=== PATIENT | female | born 1955 | race Caucasian/White ===

== ENCOUNTER 2019-01-19 23:41 | Emergency (ER) | payer OTHER ==
[2019-01-20 00:08] VITALS: BP 158/82; PULSE 82; TEMP 98.2; BMI 61.1
--- NOTE | 2019-01-20 01:03 | PDOC ---
History of Present Illness - General Chief Complaint: Chest Pain Stated Complaint: CHEST PAIN Time Seen by Provider: 01/20/19 00:40 History Source: Patient Exam Limitations: Language Barrier (rejected interpretor. 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 Per the patient, sensation is pressure like quality, relieves with burping, worsens with exertion , and no prior episode. Per the patient, she denies recent travels, hx of PE/DVT , and recent immobilization. She had a cardiac work up 1 year ago that was negative. Denies the following: diaphoresis, tearing chest pain, nausea, and vomiting. Endorses SOB. Received 324 mg aspirin in ambulance. Allergies: NKDA Meds: lisinopril 2.5 mg, metoprolol 25 mg, and aspirin 81 mg Past History - Past Medical History Allergies/Adverse Reactions: Allergies Allergy/AdvReac Type Severity Reaction Status Date / Time No Known Allergies Allergy Verified 01/20/19 00:08 Home Medications: Ambulatory Orders Aspirin 81 mg PO DAILY 01/20/19 Metoprolol/Hydrochlorothiazide [Metoprolol-Hctz 50-25 mg Tab] 25 mg PO DAILY Cancer: Yes COPD: No HTN: Yes Other medical history: stroke, right breast ca - Suicide/Smoking/Psychosocial Hx Smoking History: Never smoked Have you smoked in the past 12 months: No Information on smoking cessation initiated: No Hx Alcohol Use: No Drug/Substance Use Hx: No Review of Systems - Review of Systems Able to Perform ROS?: Yes Is the patient limited Amharic proficient: No Constitutional: No: Chills, Diaphoresis, Fever, Weakness HEENTM: No: Eye Pain, Ear Pain, Nose Pain, Throat Pain, Mouth Pain Respiratory: Yes: Cough, Shortness of Breath. No: Hemoptysis Cardiac (ROS): Yes: Chest Pain. No: Lightheadedness, Palpitations, Syncope ABD/GI: No: Constipated, Diarrhea, Nausea, Rectal Bleeding, Vomiting, Tarry Stools : No: Burning, Dysuria, Hematuria, Incontinence Musculoskeletal: Yes: Neck Pain. No: Back Pain, Joint Pain Integumentary: No: Bruising, Erythema, Rash Neurological: No: Headache, Numbness, Tingling, Tremors Psychiatric: No: Change in Appetite Endocrine: No: Unexplained Weight Gain *Physical Exam - Vital Signs Last Vital Signs Temp Pulse Resp BP Pulse Ox 98.2 F 82 20 158/82 98 01/20/19 00:05 01/20/19 00:05 01/20/19 00:05 01/20/19 00:05 01/20/19 00:05 - Physical Exam General Appearance: Yes: Nourished, Appropriately Dressed. No: Apparent Distress, Intoxicated HEENT: positive: EOMI, ESTER, Normal Voice, Symmetrical, Hearing Grossly Normal. negative: Pale Conjunctivae, Scleral Icterus (R), Scleral Icterus (L), Muffled /Hoarse voice, Excessive drooling Neck: positive: Trachea midline, Supple. negative: Tender, Lymphadenopathy (R) , Lymphadenopathy (L), Tender lateral, Tender midline Respiratory/Chest: positive: Lungs Clear, Normal Breath Sounds. negative: Chest Tender, Respiratory Distress, Accessory Muscle Use Cardiovascular: positive: Regular Rhythm, Regular Rate, S1, S2. negative: Systolic Murmur Gastrointestinal/Abdominal: positive: Normal Bowel Sounds, Flat, Soft. negative : Tender, Distended, Guarding, Rebound Lymphatic: negative: Adenopathy Musculoskeletal: positive: Normal Inspection. negative: CVA Tenderness, Vertebral Tenderness Extremity: positive: Normal Capillary Refill, Normal Inspection, Normal Range of Motion. negative: Tender Integumentary: positive: Normal Color, Dry, Warm Neurologic: positive: Fully Oriented, Alert, Normal Mood/Affect Heart Score/ECG Review - History History: Moderately suspicious - Electrocardiogram EKG: Normal - Age Age: 45-65 - Risk Factors Risk Factors Heart Score: Yes Hx Hypertension Based on the list above the patient has:: 1-2 risk factors - Troponin Troponin: </= normal limit - Score Heart Score - Total: 3 ED Treatment Course - LABORATORY CBC & Chemistry Diagram: 01/20/19 02:08 01/20/19 02:08 - RADIOLOGY Radiology Studies Ordered: Category Date Time Status CHEST PA & LAT [RAD] Stat Radiology 01/20/19 00:29 Ordered Medical Decision Making - Medical Decision Making 63 yo F with a hx of breast cancer (right cancer 2013 s/p radiation), CVA (2012 , residual left arm and left leg weakness), and HTN presents to the emergency department with chest pain radiating to the neck and left arm. Initial vitals: Initial Vital Signs Temp Pulse Resp BP Pulse Ox 98.2 F 82 20 158/82 98 01/20/19 00:05 01/20/19 00:05 01/20/19 00:05 01/20/19 00:05 01/20/19 00:05 Work up: ACS rule out. EKG: NSR without ST elevations or depressions. No TWI. Ventricular rate 71 bpm. Labs: cbc, cmp, trops, cxr. Patient was signed out to Dr. De Leon *DC/Admit/Observation/Transfer Diagnosis at time of Disposition: Chest pain - Referrals Referrals: ON STAFF,NOT [Primary Care Provider] - - Patient Instructions Printed Discharge Instructions: DI for Chest Pain Additional Instructions: If you worsening pain, shortness of breath, palpitations, excessive sweating, fever or other concerning symptoms please return to the ER. Please follow up with your primary care doctor in the next week. - Post Discharge Activity
--- NOTE | 2019-01-20 02:03 | PDOC ---
Documentation entered by Humera Fragoso SCRIBE, acting as scribe for Ray Cleveland MD. Ray Cleveland MD: This documentation has been prepared by the [place] johnston Xhesika, SCRIBE, under my direction and personally reviewed by me in its entirety. I confirm that the documentation accurately reflects all work, treatment, procedures, and medical decision making performed by me. Attending Attestation - Resident Resident Name: Mike Tolbert - ED Attending Attestation I have performed the following: I have examined & evaluated the patient, The case was reviewed & discussed with the resident, I agree w/resident's findings & plan, Exceptions are as noted - HPI HPI: 01/20/19 01:39 The patient is a 63 year old female with a PMH of breast cancer (right cancer 2013 s/p radiation), CVA (2012, residual left arm and left leg weakness), and HTN who presents to the ED BIBA for chest pain since 7pm. Patient notes CP feels like someone is punching her, is intermittent, radiates to her neck and L arm, and worsened with movement. Patient denies any recent travel, long car rides. Pt denies any history of PE or DVT. The patient denies shortness of breath, headache and dizziness. Denies fever, chills, cough, nausea, vomiting, diarrhea and constipation. Denies dysuria, frequency, urgency and hematuria. Allergies:, NKDA Social Hx: Denies current smoking, drinking, or other substance usage. - Physicial Exam PE: 01/20/19 01:40 Vitals: Triage Vital signs reviewed General Appearance: no acute distress, well nourished well developed, Neck: Supple;No Nuchal rigidity Chest Wall: Nontender Cardiac: Regular rate and rhythm, no murmurs, no rubs, no gallops, Lungs: Clear to auscultation bilateral, good air movement bilaterally, Abdomen: Soft, nondistended, normal bowel sounds, nontender to palpation Extremities:(+) mild L arm pain reproducible with movement. Moving all extremities, no cyanosis, clubbing, or edema Skin: Warm and dry, no rashes or lesions, no petechiae Neuro: AOX3; Cranial Nerves 2-12 grossly c intact, Strength intact to all extremities, Sensation intact to all extremities. Psych: normal mood, normal affect - Medical Decision Making 01/21/19 21:43 63 years old atypical chest discomfort more likely musculoskeletal radiculopathy EKG unremarkable troponin pending if troponin negative heart score is 3 patient would be safe for outpatient follow-up to follow up labs and dispo Heart Score/ECG Review - ECG Impressions Comment:: 01/21/19 21:[address] elevations no T-wave inversions Interpreted by me.
[2019-01-20] MEDS ORDERED: ACETAMINOPHEN 1000 MG/100 ML VIAL (NON FORMULARY) IVPB ONE (02:20)
[2019-01-20] MEDS ORDERED: FAMOTIDINE 20 MG/50 ML IVPB 20 MG/50 ML MG IVPB ONE (02:20)
[2019-01-20] MEDS ORDERED: SODIUM CHLORIDE 0.9% 500 ML INFUS.BAG IV ONE (02:21)
[2019-01-20 03:22] LABS: BASO % 0.6 % (0-2.0); EOS % 0.9 % (0-4.5); HEMATOCRIT 38.4 % (32.4-45.2); LYMPH % 13.4 % (8-40); MCH 30.3 pg (25.7-33.7); MCHC 33.8 g/dl (32.0-36.0); MEAN CELL VOLUME 89.6 fl (80-96); MONO % 7.6 % (3.8-10.2); NEUT % 77.5 % (42.8-82.8); PLATELET COUNT 147 K/MM3 (134-434); RBC 4.28 M/mm3 (3.60-5.2); RDW 13.5 % (11.6-15.6)
--- NOTE | 2019-01-20 03:29 | PDOC ---
*Physical Exam - Vital Signs Last Vital Signs Temp Pulse Resp BP Pulse Ox 98.2 F 82 20 158/82 98 01/20/19 00:05 01/20/19 00:05 01/20/19 00:05 01/20/19 00:05 01/20/19 00:05 <Ivelisse Rodriguez - Last Filed: 01/20/19 04:30> - Vital Signs Last Vital Signs Temp Pulse Resp BP Pulse Ox 98.2 F 82 20 158/82 98 01/20/19 00:05 01/20/19 00:05 01/20/19 00:05 01/20/19 00:05 01/20/19 00:05 <Paola Kenney - Last Filed: 01/20/19 04:33> ED Treatment Course - LABORATORY CBC & Chemistry Diagram: 01/20/19 02:08 01/20/19 02:08 - Medications Given in the ED: ED Medications Discontinued Medications Generic Name Dose Route Start Last Admin Trade Name Jyothi PRN Reason Stop Dose Admin Acetaminophen 1,000 mg 01/20/19 02:20 01/20/19 02:54 Ofirmev Injection - IVPB 01/20/19 02:21 1,000 mg ONCE ONE Administration Famotidine/Sodium Chloride 20 mg in 50 mls @ 100 mls/hr 01/20/19 02:20 02:54 Pepcid 20 Mg Premixed Ivpb - IVPB 01/20/19 02:49 100 mls/hr ONCE ONE Administration Sodium Chloride 1,000 ml 01/20/19 02:21 01/20/19 02:55 Normal Saline - IV 01/20/19 02:22 1,000 ml ONCE ONE Administration <Ivelisse Rodriguez - Last Filed: 01/20/19 04:30> - LABORATORY CBC & Chemistry Diagram: 01/20/19 02:08 01/20/19 02:08 - ADDITIONAL ORDERS Additional order review: Laboratory Results 01/20/19 01/20/19 01/20/19 02:08 02:08 02:08 PT with INR 11.30 INR 0.96 Sodium 138 Potassium 3.9 Chloride 104 Carbon Dioxide 26 Anion Gap No Result Required. BUN 14.8 Creatinine 1.0 Est GFR (CKD-EPI)AfAm 69.44 Est GFR (CKD-EPI)NonAf 59.91 Random Glucose 105 Calcium 9.4 Total Bilirubin 0.5 AST 18 ALT 22 Alkaline Phosphatase 74 Creatine Kinase 168 Troponin I < 0.02 Total Protein 7.6 Albumin 4.0 01/20/19 02:08 RBC 4.28 MCV 89.6 MCHC 33.8 RDW 13.5 MPV 10.0 Neutrophils % 77.5 Lymphocytes % 13.4 Monocytes % 7.6 Eosinophils % 0.9 Basophils % 0.6 - Medications Given in the ED: ED Medications Discontinued Medications Generic Name Dose Route Start Last Admin Trade Name Jyothi PRN Reason Stop Dose Admin Acetaminophen 1,000 mg 01/20/19 02:20 01/20/19 02:54 Ofirmev Injection - IVPB 01/20/19 02:21 1,000 mg ONCE ONE Administration Famotidine/Sodium Chloride 20 mg in 50 mls @ 100 mls/hr 01/20/19 02:20 02:54 Pepcid 20 Mg Premixed Ivpb - IVPB 01/20/19 02:49 100 mls/hr ONCE ONE Administration Sodium Chloride 1,000 ml 01/20/19 02:21 01/20/19 02:55 Normal Saline - IV 01/20/19 02:22 1,000 ml ONCE ONE Administration <Paola Kenney - Last Filed: 01/20/19 04:33> Medical Decision Making - Medical Decision Making 01/20/19 03:28 -Signout received from Dr. Tolbert -63 yo F with a hx of breast cancer (right cancer 2012 s/p radiation), CVA (2012 , residual left arm and left leg weakness), and HTN presents to the emergency department with chest pain radiating to the neck and left arm. -Patient seen at bedside, resting comfortably -Labs pending. CXR reviewed, no acute pathology noted -EKG reviewed normal, no acute ischemic changes -Contacted lab for results, told lab is having difficulty with equipment. Will dispo after receiving results. 01/20/19 04:28 -CMP grossly normal. -Will discharge patient home. <Ivelisse Rodriguez - Last Filed: 01/20/19 04:30> - Medical Decision Making 01/20/19 04:32 Chemistries and trop normal; pt feels great and she is ready to go home. Follow with [facility] in the [place]. Last visit to her PMD was 3 mos ago. Pt has no Fam hx of CAD. She has HTN only. Siblings have only cancer. <Paola Kenney - Last Filed: 01/20/19 04:33> *DC/Admit/Observation/Transfer <Ivelisse Rodriguez - Last Filed: 01/20/19 04:30> <Paola Kenney - Last Filed: 01/20/19 04:33> Diagnosis at time of Disposition: Chest pain - Discharge Dispostion Disposition: HOME Condition at time of disposition: Improved - Referrals Referrals: ON STAFF,NOT [Primary Care Provider] - - Patient Instructions Printed Discharge Instructions: DI for Chest Pain Additional Instructions: If you worsening pain, shortness of breath, palpitations, excessive sweating, fever or other concerning symptoms please return to the ER. Please follow up with your primary care doctor in the next week. - Post Discharge Activity
[2019-01-20 03:37] LABS: INR 0.96 (0.83-1.09); PROTHROMBIN TIME (PATIENT) 11.3 SEC (9.7-13.0)
[2019-01-20 04:05] LABS: BLOOD UREA NITROGEN 14.8 mg/dL (7-18); POTASSIUM 3.9 mmol/L (3.5-5.1)
[2019-01-20 04:06] LABS: BILIRUBIN,TOTAL 0.5 mg/dL (0.2-1); CALCIUM 9.4 mg/dL (8.5-10.1); TOT PROT 7.6 g/dl (6.4-8.2)
--- NOTE | 2019-01-20 23:44 | EKG ---
Test Reason : Blood Pressure : / mmHG Vent. Rate : 071 BPM Atrial Rate : 071 BPM P-R Int : 148 ms QRS Dur : 078 ms QT Int : 396 ms P-R-T Axes : 043 -15 048 degrees QTc Int : 430 ms NORMAL SINUS RHYTHM NORMAL ECG NO PREVIOUS ECGS AVAILABLE Confirmed by LILIAN MOREL MD ([id number]) on 01/20/2019 11:44:09 PM Referred By: Confirmed By:LILIAN MOREL MD
--- NOTE | 2019-01-24 12:47 | EKG ---
Test Reason : Blood Pressure : / mmHG Vent. Rate : 068 BPM Atrial Rate : 068 BPM P-R Int : 150 ms QRS Dur : 078 ms QT Int : 416 ms P-R-T Axes : 037 -27 065 degrees QTc Int : 442 ms NORMAL SINUS RHYTHM NORMAL ECG WHEN COMPARED WITH ECG OF 19-JAN-2019 23:58, NO SIGNIFICANT CHANGE WAS FOUND Confirmed by YESENIA MUNIZ MD ([id number]) on 01/24/2019 12:47:16 PM Referred By: Confirmed By:YESENIA MUNIZ MD
== END 2019-01-20 04:37 | disposition home or self-care (01) ==
LOC: JER 23:41
PROC: 3E033GC Introduction of Other Therapeutic Substance into Peripheral Vein, Percutaneous Approach (ICD-10-PCS; principal; 2019-01-19)
PROC: 3E033NZ Introduction of Analgesics, Hypnotics, Sedatives into Peripheral Vein, Percutaneous Approach (ICD-10-PCS; 2019-01-19)
DX: R07.89 Other chest pain (principal); I10 Essential (primary) hypertension; Z85.3 Personal history of malignant neoplasm of breast; I69.854 Hemiplegia and hemiparesis following other cerebrovascular disease affecting left non-dominant side
CPT/HCPCS: 36415; 71046-TC-FY; 80053; 82550; 82553; 84484; 85025; 85610; 93005; 93010; 99282-25; J0131